=== PATIENT | female | born 1955 | race Caucasian/White ===

== ENCOUNTER 2023-06-24 06:00 | Day surgery (SDC) | payer OTHER ==
[~2023-06-24] VITALS: Ht 157.5 cm; Wt 76.7 kg
[2023-06-24] MEDS ORDERED: ceFAZolin SODIUM 2 GM in D5W 100 ML IV ONE (07:00)
[2023-06-24 07:01] VITALS: O2SAT 98
[2023-06-24] MEDS ORDERED: BUPIVACAINE /PF 0.25% 30 ML VIAL INJ ONE (07:35)
[2023-06-24] MEDS ORDERED: LIDOCAINE 2%, 20 ML MDV ONE (07:35)
[2023-06-24] MEDS ORDERED: DESFLURANE 15 MIN GAS INH ONE (07:35)
[2023-06-24] MEDS ORDERED: WATER FOR IRRIGATION,STERILE 1,000 ML IRRIG.SOLN IR ONE (07:35)
[2023-06-24] MEDS ORDERED: MIDAZOLAM HCL/PF 2 MG/2 ML SYRINGE ONE (07:35)
[2023-06-24] MEDS ORDERED: fentaNYL CITRATE/PF 100 MCG/2 ML AMP ONE (07:35)
[2023-06-24] MEDS ORDERED: NS IRRIG SOLN 1000 ML IR ONE (07:35)
[2023-06-24] MEDS ORDERED: SUGAMMADEX SODIUM 200 MG/2 ML VIAL IV ONE (07:35)
[2023-06-24] MEDS ORDERED: ONDANSETRON HCL 4 MG/2 ML VIAL ONE (07:35)
[2023-06-24] MEDS ORDERED: PROPOFOL 200MG/ 20ML VIAL (DIPRIVAN) IV ONE (07:35)
[2023-06-24] MEDS ORDERED: ROCURONIUM BROMIDE 10 MG/ML (ZEMURON) ONE (07:35)
[2023-06-24] MEDS ORDERED: ACETAMINOPHEN I.V. 1000 MG 100 ML IV ONE (08:26)
[2023-06-24] MEDS ORDERED: LR 1,000 ML IV SCH (08:30)
[2023-06-24] MEDS ORDERED: hydrALAZINE HCL 20 MG/ML VIAL IVP PRN (08:30)
[2023-06-24] MEDS ORDERED: MIDAZOLAM HCL 2 MG/2 ML VIAL (VERSED) IVP PRN (08:30)
[2023-06-24] MEDS ORDERED: LABETALOL 100 MG/ 20ML VIAL IVP PRN (08:30)
[2023-06-24] MEDS ORDERED: HYDROmorphone 1 MG/ML INJ. CARTRIDGE IVP PRN ×2 (08:30)
[2023-06-24] MEDS ORDERED: MEPERIDINE HCL/PF 25 MG/ML DISP.SYRIN IVP PRN (08:30)
[2023-06-24] MEDS ORDERED: METOCLOPRAMIDE HCL 10 MG/2 ML VIAL IVP PRN (08:30)
[2023-06-24] MEDS ORDERED: HYDR-3925 PO (09:34)
[2023-06-24 11:25] VITALS: BP_SYST 128; PULSE 79; RESP 20; TEMP 97
== END 2023-06-24 12:13 | disposition home or self-care (01) ==
LOC: SDS 06:00 → SMU 06:00 → SDS 12:13
PROVIDERS: ATTEND Surgery
DX: R19.01 Right upper quadrant abdominal swelling, mass and lump (principal); D17.1 Benign lipomatous neoplasm of skin and subcutaneous tissue of trunk; I10 Essential (primary) hypertension; K21.9 Gastro-esophageal reflux disease without esophagitis; E78.5 Hyperlipidemia, unspecified; E66.9 Obesity, unspecified; Z88.1 Allergy status to other antibiotic agents; E11.9 Type 2 diabetes mellitus without complications; F41.9 Anxiety disorder, unspecified; Z80.0 Family history of malignant neoplasm of digestive organs; Z80.3 Family history of malignant neoplasm of breast; Z79.899 Other long term (current) drug therapy
CPT/HCPCS: 87081; 21933; 22903; 88305; 88313; 88341; 88342; 13101; J3490 ×2; J2001; J3465; J2405; J2704; J3010; J7060; J0131